=== PATIENT | male | born 1990 | race Caucasian/White ===

== ENCOUNTER 2019-01-26 16:38 | Emergency (ER) | payer OTHER ==
[2019-01-26] MEDS ORDERED: Acetaminophen 325 MG Tab PO ONE (17:07)
--- NOTE | 2019-01-26 17:08 | EDM.PDOC ---
ED HPI GENERAL MEDICAL PROBLEM - General Chief Complaint: Neck Problem Stated Complaint: BUMPED HEAD AT WORK Time Seen by Provider: 01/26/19 16:52 Source of Information: Reports: Patient - History of Present Illness INITIAL COMMENTS - FREE TEXT/NARRATIVE: Trauma minor was called and patient was seen at that time. Patient presents with head, neck and mid-back pain after a workplace injury around 11am this morning. 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 He reports having immediate neck pain. No immediate loss of consciousness, but when a friend came over and helped him to standing position patient reports that he did become lightheaded and pass out. He is unsure how long he he lost consciousness and his coworkers did not tell him. He feels it was very short. Patient states he continues to have a headache to the right and top of his head. Has posterior neck pain. He spent the afternoon laying "back at camp because nobody would let me go to the doctor". Patient states that just prior to arrival here he was at the walk- in clinic and he does not feel that he was taken seriously there. Incidentally, nursing reports to me that patient's work service delivery supervisor expressed concern upon arrival that he did not want him to be evaluated, have any other necessary tests performed or any medications prescribed due to their work insurance. Nursing states that she told him treatment was between the provider and patient and only tests that were medically necessary would be performed. Posterior Neck Pain Score (Numeric/FACES): 10 - Related Data Allergies Allergy/AdvReac Type Severity Reaction Status Date / Time No Known Allergies Allergy Verified 01/26/19 17:09 Home Meds: Home Meds Orphenadrine [Norflex] 100 mg PO BID PRN #30 tab 01/26/19 [Rx] ED ROS GENERAL - Review of Systems Review Of Systems: See Below Constitutional: Denies: Weakness, Fatigue, Diaphoresis HEENT: Denies: Vertigo, Vision Change Respiratory: Reports: No Symptoms Cardiovascular: Reports: No Symptoms GI/Abdominal: Denies: Nausea, Vomiting Musculoskeletal: Reports: Neck Pain, Back Pain, Muscle Pain Skin: Reports: No Symptoms Neurological: Reports: Headache, Syncope. Denies: Confusion, Dizziness, Numbness, Paresthesia, Seizure, Tingling, Tremors, Change in Speech, Gait Disturbance Psychiatric: Reports: No Symptoms ED EXAM, UPPER BACK/NECK PAIN - Physical Exam Exam: See Below Exam Limited By: No Limitations General Appearance: Alert, WD/WN, No Apparent Distress Eye Exam: Bilateral Eye: Normal Fundi, Normal Inspection, PERRL Ears Exam: Normal External Exam, Normal Canal, Normal TMs Nose Exam: Normal Inspection, Normal Mucousa Throat/Mouth Exam: Normal Oropharynx Head Exam: Scalp Hematoma (Small hematoma to right parietal region), Scalp Tenderness. No: Scalp Lacerations, Scalp Abrasions, Facial Abrasions, Facial Lacerations Neck Exam: Normal Alignment, Paraspinous Muscle Tender (Bilateral), Spinous Processes Tender (C4-7 tenderness) Nexus Criteria: Posterior, Midline Cervical Tenderness. No: Evidence of Intoxication, Altered Level of Consciousness Cardiovascular/Respiratory: Regular Rate, Rhythm, No Respiratory Distress Back Exam: Normal Inspection, Paraspinal Tenderness (thoracic muscle tenderness) . No: Vertebral Tenderness (no thoracic spinous process tenderness) Extremities: Normal Inspection, Normal Range of Motion. No: Pedal Edema Neurologic: bisque cleaner II-XII nml As Tested, No Motor/Sensory Deficits, Normal Mood/ Affect, Other (Oriented to person and time. Knew he was in clinic but was not sure in which city (patient stated he just moved to [place] for work 3 weeks ago).) Psychiatric: Normal Affect, Normal Mood Skin Exam: Normal Color, Warm/Dry Lymphatic: No Adenopathy Course - Vital Signs Last Recorded V/S: Last Vital Signs Temp 98.0 F 01/26/19 16:53 Pulse 81 01/26/19 16:53 Resp 18 01/26/19 16:53 BP 128/107 H 01/26/19 16:53 Pulse Ox 98 01/26/19 16:53 - Orders/Labs/Meds Orders: Active Orders 24 hr Category Date Time Status Thoracic Spine 2V [CR] Stat Exams 01/26/19 17:06 Ordered Meds: Medications Discontinued Medications Generic Name Dose Route Start Last Admin Trade Name Freq PRN Reason Stop Dose Admin Acetaminophen 650 mg 01/26/19 17:07 01/26/19 17:13 Tylenol PO 01/26/19 17:08 650 mg NOW ONE Administration - Re-Assessments/Exams Free Text/Narrative Re-Assessment/Exam: Neurologic exam completely normal. He has a very small hematoma to the right side of the head. With loss of consciousness and persistent neck pain, CT of the head and C-spine were performed. These are read by the radiologist as negative. Mild degenerative changes on thoracic spine x-ray. Recommend patient take it easy today, he should not return to work. Recommend ibuprofen 600 mg 3 times a day. He can supplement with Tylenol in between if needed. Norflex sent to pharmacy for the muscle spasms. He may return to work tomorrow with activities as tolerated. He can expect a bit more muscle soreness over the next 48 hours but then this should improve significantly. He will return to the emergency room for any new or worsening symptoms. Otherwise follow-up with his primary provider when he returns to [place] on Thursday. Departure - Departure Time of Disposition: 17:55 Disposition: Home, Self-Care 01 Condition: Good Clinical Impression: Neck pain Thoracic back pain Qualifiers: Chronicity: acute Back pain laterality: bilateral Qualified Code(s): M54.6 - Pain in thoracic spine Head injury due to trauma Qualifiers: Encounter type: initial encounter Qualified Code(s): S09.90XA - Unspecified injury of head, initial encounter - Discharge Information Prescriptions: Orphenadrine [Norflex] 100 mg PO BID PRN #30 tab PRN Reason: Muscle Spasm Instructions: Concussion, Adult, [id number], Neck Exercises, Back Pain, Adult , Head Injury, Adult, [id number] Referrals: PCP,None [Primary Care Provider] - Forms: ED Department Discharge, ED Return to Work/School Form Additional Instructions: Recommend he take ibuprofen 600 mg 3 times a day. You can supplement with Tylenol 650 mg in between if need to. Muscle relaxant has been sent to[address] [place] [address] pharmacy. You should not go back to work, take it easy today. You can expect to have more muscle soreness over the next 48 hours. Return to the emergency room for any new or worsening symptoms otherwise follow- up with your primary provider when you return home. - My Orders Last 24 Hours: My Active Orders 01/26/19 17:06 Thoracic Spine 2V [CR] Stat - Assessment/Plan Last 24 Hours: My Active Orders 01/26/19 17:06 Thoracic Spine 2V [CR] Stat
--- NOTE | 2019-01-26 17:42 | CT ---
Head CT Technique: Multiple axial sections through the brain were obtained. Intravenous contrast was not utilized. Findings: Ventricles along the basal cisterns and sulci over the convexities are within normal limits for the patient's age. No abnormal parenchymal densities are seen. No evidence of intracranial hemorrhage. No midline shift or mass effect is seen. Bone window settings were reviewed which shows no acute calvarial abnormality. Visualized sinuses are clear. Impression: 1. Nothing acute is seen on noncontrast head CT exam. Diagnostic code #1
--- NOTE | 2019-01-26 17:42 | CT ---
CT cervical spine Technique: Multiple axial sections were obtained from above C1 to the bottom of T1. Reconstructed sagittal and coronal images were obtained. Findings: Vertebral body heights and disc spaces are maintained. No fracture is identified. No abnormal subluxation is seen on the reconstructed sagittal images. No bony central or bony neural foraminal stenosis is seen. Impression: 1. Nothing acute is identified on CT study of the cervical spine. Diagnostic code #1
--- NOTE | 2019-01-27 06:22 | CR ---
Thoracic spine: AP, lateral and swimmer's views of the thoracic spine were obtained. Comparison: No previous thoracic spine imaging. Vertebral body heights and disc spaces are maintained. Pedicles are intact. No subluxation or discrete fracture is appreciated. Impression: 1. No discrete abnormality is appreciated on three-view thoracic spine exam. Diagnostic code #1
== END 2019-01-26 18:17 | disposition home or self-care (01) ==
LOC: JD.ED 16:38
DX: S06.9X9A Unspecified intracranial injury with loss of consciousness of unspecified duration, initial encounter (principal); S00.03XA Contusion of scalp, initial encounter; M54.6 Pain in thoracic spine; M54.2 Cervicalgia; W22.8XXA Striking against or struck by other objects, initial encounter; Y99.0 Civilian activity done for income or pay
CPT/HCPCS: 70450; 72070; 72125; 99283; A9270